=== PATIENT | male | born 1955 | race Caucasian/White ===

== ENCOUNTER 2023-11-09 08:35 | Day surgery (SDC) | payer MEDICARE, OTHER ==
[2023-11-09] VITALS (11 sets, daily range): BP systolic 90–125; BP diastolic 70–91; PULSE 55–84; TEMP 97.6
[~2023-11-09] VITALS: Ht 177.8 cm; Wt 62.0 kg
[~2023-11-09 08:35] MED LIST: CELEXA10 MG PO; CLEOCIN HCL300 MG PO; NO HOME MEDICATIONS; TYLENOL EXTRA500 M1 PO
[2023-11-09] MEDS ORDERED: 1/2 NS 1,000 ML IV SCH (09:00)
[2023-11-09 09:42] LABS: HEMATOCRIT 44.6 % (42.0-52.0); HEMOGLOBIN 14.8 g/dl (13.5-18.0); MEAN CELL VOLUME 89 fl (80.0-100.0); MEAN CORPUSCULAR HEMOGLOBIN 29 pg (27-31); MEAN CORPUSCULAR HGB CONC 33 g/dl (33.0-37.0); PLATELET COUNT 155 K/mm3 (130-400); RED BLOOD COUNT 5.03 M/mm3 (4.20-5.60)
[2023-11-09] MEDS ORDERED: ASPIRIN E.C. 8181 MG PO (09:43)
[2023-11-09] MEDS ORDERED: COMPLETE MULTI1 TAB PO (09:44)
[2023-11-09] MEDS ORDERED: LIPITOR20 MG PO (09:44)
[2023-11-09 09:50] LABS: INR 1.1 (0.8-3.0); PROTHROMBIN TIME 11.4 SECONDS (9.7-12.8)
[2023-11-09 09:53] LABS: PARTIAL THROMBOPLASTIN TIME 32.3 SECONDS (26.0-37.0)
[2023-11-09 10:05] LABS: CALCIUM 10.5 mg/dL (8.4-10.2); CREATININE, serum 0.88 mg/dL (0.72-1.25); POTASSIUM 4.2 mEq/L (3.5-4.5)
--- NOTE | 2023-11-09 11:28 | NUR ---
SEE MERGE FOR PROCEDURE DOCUMENTATION
[2023-11-09] MEDS ORDERED: Heparin 1,000 UNITS/ML 10 ML Multi-Dose VIAL IV SCH (11:42)
[2023-11-09] MEDS ORDERED: Heparin 1,000 UNITS/ML 10 ML Multi-Dose VIAL IA SCH (11:44)
[2023-11-09] MEDS ORDERED: fentaNYL 50 MCG/ML 2 ML VIAL IV SCH (11:46)
[2023-11-09] MEDS ORDERED: Midazolam 2 MG/2 ML VIAL IV SCH (11:47)
[2023-11-09] MEDS ORDERED: Verapamil 2.5 MG/ML 2 ML VIAL IA SCH (11:54)
[2023-11-09] MEDS ORDERED: Nitroglycerin 100 MCG/ML (Cath Lab) 10 ML VIAL IA SCH (11:54)
[2023-11-09] MEDS ORDERED: Iohexol 350 - 100 ML VIAL INCOR ONE (11:55)
--- NOTE | 2023-11-09 12:15 | NUR ---
PT TO [facility] VIA BED FROM [facility], WITH PT, PT IS ALERT AND AWAKE, RADIAL BAND ON AND REVIEWED WITH PT ACTIVITY. CALL LIGHT IN REACH, DRINKS COFFEE, AND LUNCH ORDERED, NO C/O
--- NOTE | 2023-11-09 12:16 | NUR ---
PATIENT ALERT AND ORIENTED, DENIES PAIN OR NAUSEA. PATIENT TRANSFERRED TO BED INDEPENDENTLY VIA SLIDE AND TRANSPORTED TO [facility]. SPOUSE BROUGHT TO BEDSIDE. VITAL SIGNS TAKEN ON ARRIVAL, VSS. PATIENT PROVIDED CALL LIGHT, BED TO LOWEST POSITION, X3 BEDRAILS IN PLACE. PLAN OF CARE REVIEWED, QUESTIONS INVITED. RIGHT RADIAL SITE REMAINS CDI. TRANSFER OF CARE REPORT TO CATARINO CRESPO.
--- NOTE | 2023-11-09 14:10 | NUR ---
PT STOOD AT SIDE OF BED USED URINAL, 400CC YELLOW URINE, 2CC OF AIR RELEASED FROM BAND
--- NOTE | 2023-11-09 14:20 | NUR ---
RELEASED ANOTHER 2CC OF AIR, IMMEDIATE OOZE TO SITE, 2CC OF AIR REPLACED, NO FURTHER BLEEDING, BAND ON INTACT. WILL MONITOR FOR 30 MIN
--- NOTE | 2023-11-09 14:50 | NUR ---
RELEASED TR BAND AGAIN 2CC OVER 15 MIN, THEN 2CC OVER 20 MIN WITH AIR TOTAL AIR RELEASE. BANDAID OVER SITE AND COBAN ON FOR SUPPORT.
--- NOTE | 2023-11-09 15:45 | NUR ---
PT UP IN ROOM, IV D'CD INTACT. DRESSED, HAS DISCHARGE INST. PT DISCHARGED VIA W/C TO CAR WITH
== END 2023-11-09 15:50 | disposition home or self-care (01) ==
LOC: COL.CAR 08:35
PROVIDERS: Internal Medicine Cardiovascular Disease
DX: R42 Dizziness and giddiness (principal); E78.5 Hyperlipidemia, unspecified; I10 Essential (primary) hypertension; F17.210 Nicotine dependence, cigarettes, uncomplicated; Z79.899 Other long term (current) drug therapy
CPT/HCPCS: J1644; J2250; J3010; Q9967